=== PATIENT | male | born 1985 | race Caucasian/White ===

== ENCOUNTER 2016-12-31 04:38 | Emergency (ER) | payer OTHER ==
[2016-12-31 04:40] VITALS: BP 126/85
--- NOTE | 2016-12-31 04:44 | ED.ADGEN ---
Adult General Chief Complaint Chief Complaint ".. I ve had a sore throat the last couple days.." HPI HPI Patient is a 31 year old male who presents with above hx and complaints. Pt. complaints of myalgia, pain with swallowing. Son has pink eye. No recent travel or specific [place] contracts other than family. Pt. normally healthy and follow at [facility]. Pt. up to date with vaccinations. Review of Systems Review of Systems Constitutional: subjective hx fever Eyes: Denies change in visual acuity, redness, or eye pain [] HENT: Denies nasal congestion Hx of sore throat [] Respiratory: Denies cough or shortness of breath [] Cardiovascular: No additional information not addressed in HPI [] GI: Denies abdominal pain, nausea, vomiting, bloody stools or diarrhea [] : Denies dysuria or hematuria [] Musculoskeletal: Denies back pain or joint pain [] Integument: Denies rash or skin lesions [] Neurologic: Denies headache, focal weakness or sensory changes [] Endocrine: Denies polyuria or polydipsia [] Family History Family History Son= has pink eye Current Medications Current Medications Current Medications Medications (Trade) Dose Ordered Sig/Olivia Start Time Stop Time Status Last Admin Dose Admin Ibuprofen (Motrin) 600 mg 1X ONCE 12/31/16 05:00 12/31/16 05:16 DC 12/31/16 05:00 600 MG Prednisone (Prednisone) 20 mg STK-MED ONCE 12/31/16 05:13 12/31/16 05:14 DC See Nursing Allergies Allergies Allergies Coded Allergies Type Severity Reaction Last Updated Verified Sulfa (Sulfonamide Antibiotics) Allergy Intermediate 12/31/16 Yes sulfamethoxazole Allergy Intermediate 12/31/16 Yes trimethoprim Allergy Intermediate 12/31/16 Yes Sulfa Physical Exam Physical Exam Constitutional: Well developed, well nourished, in moderate distress, non- toxic appearance. [] HENT: Normocephalic, atraumatic, bilateral external ears normal, oropharynx injected but moist, no oral exudates, nose normal. [] Eyes: PERRLA, EOMI, conjunctiva normal, no discharge. [] Neck: Normal range of motion, no tenderness, supple, no stridor. [] Cardiovascular:Heart rate regular rhythm, no murmur [] Lungs & Thorax: Bilateral breath sounds clear to auscultation [] Abdomen: Bowel sounds normal, soft, no tenderness, no masses, no pulsatile masses. [] Skin: Warm, dry, no erythema, no rash. [] Back: No tenderness, no CVA tenderness. [] Extremities: No tenderness, no cyanosis, no clubbing, ROM intact, no edema. [] Neurologic: Alert and oriented X 3, normal motor function, normal sensory function, no focal deficits noted. [] Psychologic: Affect normal, judgement normal, mood normal. [] Current Patient Data Lab Results Laboratory Tests Test 12/31/16 04:50 Group A Streptococcus Rapid Negative (NEGATIVE) EKG EKG [] Radiology/Procedures Radiology/Procedures [] Course & Med Decision Making Course & Med Decision Making Pertinent Labs and Imaging studies reviewed. (See chart for details) Pt. to gargle with Listerine 4 x day. Tylenol and Ibuprofen for discomfort. Follow up with primary. [] Final Impression Final Impression 1. Pharyngitis Problems: Dragon Disclaimer Dragon Disclaimer This electronic medical record was generated, in whole or in part, using a voice recognition dictation system. PATRICIA DOMÍNGUEZ MD Dec 31, 2016 04:44
[2016-12-31] MEDS ORDERED: IBUPROFEN 600 MG TABLET. PO ONE (05:00)
[2016-12-31] MEDS ORDERED: predniSONE 20 MG TABLET ONE (05:13)
[2016-12-31] MEDS ORDERED: IBUP800T19 PO (05:20)
[2016-12-31] MEDS ORDERED: predniSONE 20 MG TABLET PO ONE (05:30)
[2016-12-31] MEDS ORDERED: DIPH25CA58 PO (05:48)
== END 2016-12-31 05:29 | disposition home or self-care (01) ==
LOC: ER 04:38
DX: J02.9 Acute pharyngitis, unspecified (principal); M79.1 Myalgia; Z88.2 Allergy status to sulfonamides; Z88.1 Allergy status to other antibiotic agents
CPT/HCPCS: 87070; 87880; 99284; J7512